=== PATIENT | female | born 1980 | race Caucasian/White ===

== ENCOUNTER 2017-11-15 12:19 | Emergency (ER) | payer BC ==
--- NOTE | 2017-11-15 13:33 | EDM.PDOC ---
ED HPI GENERAL MEDICAL PROBLEM - General Chief Complaint: Cardiovascular Problem Stated Complaint: shortness of breath Time Seen by Provider: 11/15/17 12:40 Source of Information: Reports: Patient, Family () History Limitations: Reports: No Limitations - History of Present Illness INITIAL COMMENTS - FREE TEXT/NARRATIVE: 37-year-old female presents to the emergency room accompanied by her with complaints of feeling dizziness, shortness of breath. States that she just felt kind of tired and wiped out over the last few days. She has had a migraine headache over the last 3 days but reports that it is now resolved. She denies any recent illnesses, fever, chills, nausea or vomiting. Dizziness seems to be worse when she's trying to stand up. She's had a little bit of abdominal complaints mainly in the left lower quadrant. This is not uncommon for her either as she is felt that she has history of irritable bowel syndrome. She denies any bloating, diarrhea, blood in her stools. She denies any pain with urinating or hematuria. She's not experience any chest pain, denies palpitations. She has no radiation of her symptoms. She denies any swelling in her extremities. She denies syncopal episodes. Onset: Gradual Duration: Day(s):, Waxing/Waning Location: Reports: Chest Severity: Mild Improves with: Reports: Rest Worsens with: Reports: None Associated Symptoms: Reports: Fever/Chills, Headaches, Shortness of Breath. Denies: Confusion, Chest Pain, Cough, Nausea/Vomiting, Syncope - Related Data Allergies Allergy/AdvReac Type Severity Reaction Status Date / Time Penicillins Allergy Cannot Verified 11/15/17 12:40 Remember Sulfa (Sulfonamide Allergy Hives Verified 11/15/17 12:40 Antibiotics) Home Meds: Home Meds Acetaminophen [Tylenol] 650 mg PO Q4HR PRN 11/15/17 [History] Calcium Carb & Citrate/Vit D3 [Citracal + D ER] 2 tab PO BEDTIME 11/15/17 [ History] Ibuprofen 200 mg PO Q4HR PRN 11/15/17 [History] Multivits,Ca,Minerals/Iron/FA [One-A-Day Women's] 1 tab PO DAILY 11/15/17 [ History] ED ROS GENERAL - Review of Systems Review Of Systems: ROS reveals no pertinent complaints other than HPI. Constitutional: Reports: Chills, Fatigue, Other (dizziness) Respiratory: Reports: Shortness of Breath. Denies: Wheezing, Pleuritic Chest Pain, Cough Cardiovascular: Reports: Lightheadedness. Denies: Chest Pain, Blood Pressure Problem, Dyspnea on Exertion, Edema, Orthopnea, Palpitations, PND, Syncope Endocrine: Reports: No Symptoms GI/Abdominal: Reports: Abdominal Pain. Denies: Bloody Stool, Constipation, Diarrhea : Denies: Discharge, Dysuria, Flank Pain, Hematuria, Irregular Menses, Pain Musculoskeletal: Reports: No Symptoms Skin: Reports: No Symptoms Neurological: Reports: Dizziness. Denies: Paresthesia, Trouble Speaking, Difficulty Walking, Change in Speech, Gait Disturbance Psychiatric: Reports: No Symptoms Hematologic/Lymphatic: Reports: No Symptoms Immunologic: Reports: No Symptoms ED EXAM, GENERAL - Physical Exam Exam: See Below Exam Limited By: No Limitations General Appearance: Alert, No Apparent Distress, Thin Eye Exam: Bilateral Eye: EOMI, PERRL Ears: Normal External Exam, Other (cerumen impaction bilateral ears. Impairing visualization of the TMs bilaterally) Nose: Normal Inspection Throat/Mouth: Normal Inspection, Normal Lips, Normal Teeth, Normal Gums, Normal Oropharynx, Normal Voice, No Airway Compromise Head: Atraumatic, Normocephalic Neck: Normal Inspection, Supple, Non-Tender, Full Range of Motion. No: Lymphadenopathy (L), Lymphadenopathy (R), Tender Lateral, Tender Midline, Thyromegaly Respiratory/Chest: No Respiratory Distress, Lungs Clear, Normal Breath Sounds, No Accessory Muscle Use, Chest Non-Tender Cardiovascular: Normal Peripheral Pulses, Regular Rate, Rhythm, No Edema, No Murmur Peripheral Pulses: 2+: Carotid (L), Carotid (R), Posterior Tibial (L), Posterior Tibial (R) GI/Abdominal: Normal Bowel Sounds, Soft, No Organomegaly, No Distention, No Abnormal Bruit, No Mass, Tender ( umbilical). No: Guarding, Rigid, Rebound Back Exam: Normal Inspection, Full Range of Motion Extremities: Normal Inspection, Normal Range of Motion, No Pedal Edema, Normal Capillary Refill Neurological: Alert, Oriented, CN II-XII Intact, Normal Cognition, No Motor/ Sensory Deficits Psychiatric: Normal Affect, Normal Mood Skin Exam: Warm, Dry, Intact, Normal Color, No Rash Lymphatic: No Adenopathy EKG INTERPRETATION EKG Date: 11/15/17 Time: 12:35 Rhythm: NSR Rate (Beats/Min): 93 P-Wave: Enlarged QRS: RBBB ST-T: Normal QT: Prolonged Comparison: NA - No Prior EKG EKG Interpretation Comments: Normal sinus rhythm Biatrial enlargement Incomplete right bundle branch block Prolonged QT Course - Vital Signs Last Recorded V/S: Last Vital Signs Temp 99.5 F 11/15/17 12:46 Pulse 96 11/15/17 12:46 Resp 16 11/15/17 12:46 BP 110/56 L 11/15/17 12:46 Pulse Ox 99 11/15/17 12:46 - Orders/Labs/Meds Orders: Active Orders 24 hr Category Date Time Status HCG QUALITATIVE,URINE [URCHEM] Stat Lab 11/15/17 13:12 Ordered UA W/MICROSCOPIC [URIN] Stat Lab 11/15/17 13:12 Ordered Labs: Laboratory Tests 11/15/17 11/15/17 11/15/17 Range/Units 13:12 13:12 13:12 WBC 6.1 (5.0-10.0) 10^3/uL RBC 4.83 (3.80-5.50) 10^6/uL Hgb 15.2 (12.0-16.0) g/dL Hct 45.4 (37.0-47.0) % MCV 94.0 H (82.0-92.0) fL MCH 31.4 H (27.0-31.0) pg MCHC 33.5 (32.0-36.0) g/dL RDW 11.8 (11.5-14.5) % Plt Count 226 (150-300) 10^3/uL MPV 8.0 (7.4-10.4) fL Neut % (Auto) 71.9 H (50.0-70.0) % Lymph % (Auto) 23.1 (20.0-40.0) % Ross % (Auto) 3.7 (2.0-8.0) % Eos % (Auto) 0.5 L (1.0-3.0) % Baso % (Auto) 0.8 (0.0-1.0) % Neut # (Auto) 4.5 (2.5-7.0) 10^3/uL Lymph # (Auto) 1.4 (1.0-4.0) 10^3/uL Ross # (Auto) 0.2 (0.1-0.8) 10^3/uL Eos # (Auto) 0.0 L (0.1-0.3) 10^3/uL Baso # (Auto) 0.0 (0.0-0.1) 10^3/uL Sodium 140 (136-145) mmol/L Potassium 3.6 (3.3-5.3) mmol/L Chloride 100 (98-115) mmol/L Carbon Dioxide 30.4 (21.0-32.0) mmol/L BUN 13 (6-25) mg/dL Creatinine 0.73 (0.51-1.17) mg/dL Est Cr Clr Drug Dosing 88.29 mL/min Estimated GFR (MDRD) > 60 mL/min Glucose 105 (70-110) mg/dL Calcium 9.1 (8.7-10.3) mg/dL Specimen Type Urincc Urine Color Light yellow (YELLOW) Urine Appearance Clear (CLEAR) Urine pH 7.0 (5.0-9.0) Ur Specific Wheeler 1.010 (1.005-1.030) Urine Protein Negative (NEGATIVE) mg/dL Urine Glucose (UA) Negative (NEGATIVE) mg/dL Urine Ketones Negative (NEGATIVE) mg/dL Urine Occult Blood Negative (NEGATIVE) Urine Nitrite Negative (NEGATIVE) Urine Bilirubin Negative (NEGATIVE) Urine Urobilinogen 0.2 (0.2-1.0) E.U./dL Ur Leukocyte Esterase Negative (NEGATIVE) Urine RBC Not seen /HPF Urine WBC 0-5 /HPF Ur Epithelial Cells Few /LPF Urine Bacteria Occasional (NONE TO FEW) /HPF Urine HCG, Qual (NEGATIVE) 11/15/17 Range/Units 13:12 WBC (5.0-10.0) 10^3/uL RBC (3.80-5.50) 10^6/uL Hgb (12.0-16.0) g/dL Hct (37.0-47.0) % MCV (82.0-92.0) fL MCH (27.0-31.0) pg MCHC (32.0-36.0) g/dL RDW (11.5-14.5) % Plt Count (150-300) 10^3/uL MPV (7.4-10.4) fL Neut % (Auto) (50.0-70.0) % Lymph % (Auto) (20.0-40.0) % Ross % (Auto) (2.0-8.0) % Eos % (Auto) (1.0-3.0) % Baso % (Auto) (0.0-1.0) % Neut # (Auto) (2.5-7.0) 10^3/uL Lymph # (Auto) (1.0-4.0) 10^3/uL Ross # (Auto) (0.1-0.8) 10^3/uL Eos # (Auto) (0.1-0.3) 10^3/uL Baso # (Auto) (0.0-0.1) 10^3/uL Sodium (136-145) mmol/L Potassium (3.3-5.3) mmol/L Chloride (98-115) mmol/L Carbon Dioxide (21.0-32.0) mmol/L BUN (6-25) mg/dL Creatinine (0.51-1.17) mg/dL Est Cr Clr Drug Dosing mL/min Estimated GFR (MDRD) mL/min Glucose (70-110) mg/dL Calcium (8.7-10.3) mg/dL Specimen Type Urine Color (YELLOW) Urine Appearance (CLEAR) Urine pH (5.0-9.0) Ur Specific Wheeler (1.005-1.030) Urine Protein (NEGATIVE) mg/dL Urine Glucose (UA) (NEGATIVE) mg/dL Urine Ketones (NEGATIVE) mg/dL Urine Occult Blood (NEGATIVE) Urine Nitrite (NEGATIVE) Urine Bilirubin (NEGATIVE) Urine Urobilinogen (0.2-1.0) E.U./dL Ur Leukocyte Esterase (NEGATIVE) Urine RBC /HPF Urine WBC /HPF Ur Epithelial Cells /LPF Urine Bacteria (NONE TO FEW) /HPF Urine HCG, Qual Negative (NEGATIVE) Meds: Medications Discontinued Medications Generic Name Dose Route Start Last Admin Trade Name Freq PRN Reason Stop Dose Admin Sodium Chloride 1,000 mls @ 1,000 mls/hr 11/15/17 14:00 11/15/17 14:05 Normal Saline IV 11/15/17 14:59 1,000 mls/hr .BOLUS ONE Administration - Re-Assessments/Exams Free Text/Narrative Re-Assessment/Exam: 11/15/17 15:07 Patient says she feels much better with the 1 L of fluids Departure - Departure Time of Disposition: 15:07 Disposition: Home, Self-Care 01 Condition: Good Clinical Impression: Orthostatic dizziness Instructions: Orthostatic Hypotension, Dizziness, [id number] Referrals: Rach Blackwell PA-C [Primary Care Provider] - Forms: ED Department Discharge Additional Instructions: 1. f/u with primary care for dizziness, shortness of breath, migraines, and abdominal irritability. 2. We'll send a copy of your EKG review with her primary care. 3. Return to the ER in syncopal episodes occur, chest pain, or shortness of breath worsens. - My Orders Last 24 Hours: My Active Orders 11/15/17 13:12 HCG QUALITATIVE,URINE [URCHEM] Stat UA W/MICROSCOPIC [URIN] Stat - Assessment/Plan Last 24 Hours: My Active Orders 11/15/17 13:12 HCG QUALITATIVE,URINE [URCHEM] Stat UA W/MICROSCOPIC [URIN] Stat Assessment:: 1. Dizziness 2. Orthostatic hypotension. Plan: 1. f/u with primary care for dizziness, shortness of breath, migraines, and abdominal irritability. 2. We'll send a copy of your EKG review with her primary care. 3. Return to the ER in syncopal episodes occur, chest pain, or shortness of breath worsens.
[2017-11-15 13:46] LABS: CHLORIDE,CL 100 mmol/L (98-115); SODIUM,NA 140 mmol/L (136-145)
[2017-11-15] MEDS: Sodium Chloride 0.9% 1,000 ML IV ONE (14:05)
[2017-11-15] MEDS ORDERED: Sodium Chloride 0.9% 1,000 ML ONE (18:08)
== END 2017-11-15 15:05 | disposition home or self-care (01) ==
LOC: KA.ED 12:19
DX: I95.1 Orthostatic hypotension (principal); H61.23 Impacted cerumen, bilateral; Z88.0 Allergy status to penicillin; Z88.2 Allergy status to sulfonamides; Z79.899 Other long term (current) drug therapy
CPT/HCPCS: 36415; 80048; 81001; 81025; 85025; 93005; 96360; 99283; J7030